=== PATIENT | female | born 1975 | race Caucasian/White ===

== ENCOUNTER 2017-07-11 09:49 | Emergency (ER) | payer MEDICAID ==
[~2017-07-11] VITALS: Ht 157.5 cm; Wt 68.0 kg
[~2017-07-11 09:49] MED LIST: DICL75 PO; HYDR50TA94 PO; TRIA.025%T TOP; Z.0.NO CURRENT MEDS
[2017-07-11 09:52] VITALS: BP 205/128; PULSE 145; RESP 18; TEMP 98.7; O2SAT 100
[2017-07-11 09:56] VITALS: BP 158/101
[2017-07-11] MEDS ORDERED: SODIUM CHLOR 0.9% 1000 ML INJ 1,000 ML IV ONE ×2 (10:30→11:30)
[2017-07-11] MEDS ORDERED: PROCHLORPERAZINE INJ 10 MG/2 ML VIAL IV PUSH ONE (10:30)
[2017-07-11] MEDS ORDERED: diphenhydrAMINE HCL 50 MG/ML VIAL IV PUSH ONE (10:30)
--- NOTE | 2017-07-11 11:05 | RADRPT ---
EXAM DATE/TIME: 07/11/2017 10:27 [place] COMPARISON: No previous studies available for comparison. INDICATIONS : Shortness of breath. Chest pain. Cough. MEDICAL HISTORY : Hypertension. SURGICAL HISTORY : None. ENCOUNTER: Initial ACUITY: 4 - 6 days PAIN SCORE: 5/10 LOCATION: Bilateral chest FINDINGS: A single view of the chest demonstrates the lungs to be symmetrically aerated without evidence of mas s, infiltrate or effusion. The cardiomediastinal contours are unremarkable. Osseous structures are intact. CONCLUSION: Normal examination. Nubia Novak MD on July 11, 2017 at 10:56 Board Certified Radiologist. This report was verified electronically.
[2017-07-11 11:06] LABS: AUTOMATED NEUTROPHIL # 5.1 TH/MM3 (1.8-7.7); BASOPHIL # 0.1 TH/MM3 (0-0.2); BASOPHIL % 0.7 % (0.0-2.0); EOSINOPHIL # 0.1 TH/MM3 (0-0.4); HEMATOCRIT 39.3 % (35.0-46.0); HEMOGLOBIN 12.9 GM/DL (11.6-15.3); LYMPH % 30.1 % (9.0-44.0); LYMPHOCYTE # 2.5 TH/MM3 (1.0-4.8); MEAN CELL VOLUME 74.6 FL (80.0-100.0); MEAN CORPUSCULAR HEMOGLOBIN 24.5 PG (27.0-34.0); MEAN CORPUSCULAR HGB CONC 32.8 % (32.0-36.0); MEAN PLATELET VOLUME 7.8 FL (7.0-11.0); MONO % 6.9 % (0.0-8.0); MONOCYTE # 0.6 TH/MM3 (0-0.9); NEUT % 61.3 % (16.0-70.0); PLATELET COUNT 362 TH/MM3 (150-450); RED BLOOD COUNT 5.26 MIL/MM3 (4.00-5.30); RED CELL DISTRIBUTION WIDTH 17.7 % (11.6-17.2); WHITE BLOOD COUNT 8.3 TH/MM3 (4.0-11.0)
[2017-07-11 11:17] LABS: BACTERIA, URINE RARE /hpf; BILIRUBIN, URINE NEG (NEG); BLOOD, URINE NEG (NEG); GLUCOSE,URINE NEG (NEG); KETONE, URINE NEG (NEG); NITRITE,URINE NEG (NEG); SQUAMOUS EPITHELIAL CELL URINE 7 /hpf (0-5); URINE COLOR COLORLESS (YELLW/STRAW); URINE LEUKOCYTE ESTERASE NEG (NEG)
[2017-07-11 11:27] LABS: ALBUMIN 4.1 GM/DL (3.4-5.0); AST (GOT) 16 U/L (15-37); BICARBONATE 25.8 MEQ/L (21.0-32.0); BLOOD UREA NITROGEN 4 MG/DL (7-18); CALCIUM 9.2 MG/DL (8.5-10.1); CHLORIDE 102 MEQ/L (98-107); CREATININE 0.88 MG/DL (0.50-1.00); GLOMERULAR FILTRATION RATE 71 ML/MIN (>89); GLUCOSE,RANDOM 85 MG/DL (74-106); SODIUM (NA) 135 MEQ/L (136-145)
[2017-07-11 11:28] LABS: ALT (GPT) 26 U/L (10-53)
[2017-07-11 11:31] LABS: ALKALINE PHOSPHATASE 128 U/L (45-117); TOTAL BILIRUBIN ADULT 0.5 MG/DL (0.2-1.0); TOTAL PROTEIN 8.4 GM/DL (6.4-8.2)
[2017-07-11] MEDS ORDERED: NABU1TAB37 PO (11:41)
--- NOTE | 2017-07-11 11:42 | PD ---
HPI . Headache Chief Complaint: Pain: Acute or Chronic Time Seen by Provider: 10:08 Travel History International Travel<30 days: No Contact w/Intl Traveler<30days: No Traveled to known affect area: No History of Present Illness HPI Patient presents with chief complaint of headache. Onset was one and half weeks ago. It radiates to her neck and back. It is getting progressively worse. She currently rates it 10/10. She states that her pain tended to occur at the end of the day at the onset of her symptoms but that the pain is now continuous. She reports no relief with ibuprofen or Aleve. In addition, she is complaining with bilateral hip pain. She also has a poor appetite. She reports subjective fevers and chills. [facility] Past Medical History Anxiety: Yes Diminished Hearing: No Hypertension: Yes Psychiatric: Yes (PANIC ATTACK D/O) Tetanus Vaccination: Unknown ?: Not Social History Alcohol Use: Yes Tobacco Use: Yes Substance Use: Yes Allergies-Medications (Allergen,Severity, Reaction): Coded Allergies: penicillin G (Unverified Allergy, Severe, 07/11/17) Reported Meds & Prescriptions Reported Meds & Active Scripts Active No Active Prescriptions or Reported Medications Review of Systems Except as stated in HPI: all other systems reviewed are Neg General / Constitutional: Positive: Fever, Chills HENT: Positive: Headaches Musculoskeletal: Positive: Myalgias Physical Exam Narrative GENERAL: Patient is tearful. SKIN: warm/dry. Normal color and turgor. HEAD: Normocephalic. Atraumatic. Occipital scalp tenderness. EYES: Pupils equal and round. No scleral icterus. No injection or drainage. ENT: No nasal bleeding or discharge. Mucous membranes pink and moist. NECK: Trachea midline. Full range of motion without pain.. She does have paraspinous muscle tenderness. CARDIOVASCULAR: Sinus tachycardia. Heart sounds are normal. RESPIRATORY: No accessory muscle use. Clear to auscultation. Breath sounds equal bilaterally. GASTROINTESTINAL: Abdomen soft. Nontender. Bowel sounds present. Nondistended.c MUSCULOSKELETAL: No obvious deformities. Ambulatory. NEUROLOGICAL: Awake and alert. No obvious cranial nerve deficits. Motor grossly within normal limits. Normal speech. PSYCHIATRIC: Appropriate mood and affect; insight and judgment normal. Data Data Last Documented VS Vital Signs Date Time Temp Pulse Resp B/P (MAP) Pulse Ox O2 Delivery O2 Flow Rate FiO2 07/11/17 09:56 158/101 (120) 07/11/17 09:52 98.7 145 18 100 Orders Orders Sepsis Workup Initiated (07/11/17 ) Complete Blood Count With Diff (07/11/17 10:16) Comprehensive Metabolic Panel (07/11/17 10:16) Lactic Acid Sepsis Protocol (07/11/17 10:16) Urinalysis - C+S If Indicated (07/11/17 10:16) Influenzae A/B Antigen (07/11/17 10:16) Blood Culture (07/11/17 10:16) Chest, Single Ap (07/11/17 10:16) Iv Access Insert/Monitor (07/11/17 10:16) Diphenhydramine Inj (Benadryl Inj) (07/11/17 10:30) Prochlorperazine Inj (Compazine Inj) (07/11/17 10:30) Sodium Chlor 0.9% 1000 Ml Inj (Ns 1000 M (07/11/17 10:30) Urine Culture (07/11/17 10:45) Sodium Chlor 0.9% 1000 Ml Inj (Ns 1000 M (07/11/17 11:30) Labs Laboratory Tests Test 07/11/17 10:45 White Blood Count 8.3 TH/MM3 Red Blood Count 5.26 MIL/MM3 Hemoglobin 12.9 GM/DL Hematocrit 39.3 % Mean Corpuscular Volume 74.6 FL Mean Corpuscular Hemoglobin 24.5 PG Mean Corpuscular Hemoglobin Concent 32.8 % Red Cell Distribution Width 17.7 % Platelet Count 362 TH/MM3 Mean Platelet Volume 7.8 FL Neutrophils (%) (Auto) 61.3 % Lymphocytes (%) (Auto) 30.1 % Monocytes (%) (Auto) 6.9 % Eosinophils (%) (Auto) 1.0 % Basophils (%) (Auto) 0.7 % Neutrophils # (Auto) 5.1 TH/MM3 Lymphocytes # (Auto) 2.5 TH/MM3 Monocytes # (Auto) 0.6 TH/MM3 Eosinophils # (Auto) 0.1 TH/MM3 Basophils # (Auto) 0.1 TH/MM3 CBC Comment DIFF FINAL Differential Comment Urine Color COLORLESS Urine Turbidity CLEAR Urine pH 6.0 Urine Specific Jackson 1.001 Urine Protein NEG mg/dL Urine Glucose (UA) NEG mg/dL Urine Ketones NEG mg/dL Urine Occult Blood NEG Urine Nitrite NEG Urine Bilirubin NEG Urine Urobilinogen LESS THAN 2.0 MG/DL Urine Leukocyte Esterase NEG Urine RBC 1 /hpf Urine WBC 1 /hpf Urine Squamous Epithelial Cells 7 /hpf Urine Bacteria RARE /hpf Microscopic Urinalysis Comment CATH-CULTURE IND Blood Urea Nitrogen 4 MG/DL Creatinine 0.88 MG/DL Random Glucose 85 MG/DL Total Protein 8.4 GM/DL Albumin 4.1 GM/DL Calcium Level 9.2 MG/DL Alkaline Phosphatase 128 U/L Aspartate Amino Transf (AST/SGOT) 16 U/L Alanine Aminotransferase (ALT/SGPT) 26 U/L Total Bilirubin 0.5 MG/DL Sodium Level 135 MEQ/L Potassium Level 3.4 MEQ/L Chloride Level 102 MEQ/L Carbon Dioxide Level 25.8 MEQ/L Anion Gap 7 MEQ/L Estimat Glomerular Filtration Rate 71 ML/MIN Lactic Acid Level 1.8 mmol/L MDM Medical Decision Making Medical Screen Exam Complete: Yes Emergency Medical Condition: Yes Differential Diagnosis Differential diagnosis of headache includes but is not limited to migraine, muscle contraction headache, brain tumor, brain bleed Narrative Course This patient presents with a headache. Her exam is compatible with a muscle contraction headache. It also sounds like she has had a viral syndrome with diffuse myalgias and arthralgias. She reports subjective fevers and chills. The patient is tachycardic without fever. A septic workup has been done. It was negative. Last Impressions Chest X-Ray 07/11/17 1016 Signed Impressions: Service Date/Time: Tuesday, July 11, 2017 10:27 - CONCLUSION: Normal examination. Nubia Novak MD Chest x-ray was independently viewed by me. CBC & BMP Diagram 07/11/17 10:45 Total Protein 8.4 H, Albumin 4.1, Calcium Level 9.2, Alkaline Phosphatase 128 H , Aspartate Amino Transf (AST/SGOT) 16, Alanine Aminotransferase (ALT/SGPT) 26, Total Bilirubin 0.5 LA 1.8 UA negative. Heart rate has come down with IV fluids. Her headache was treated with IV Compazine and Benadryl with good relief. Diagnosis Primary Impression: Headache Qualified Codes: G44.209 - Tension-type headache, unspecified, not intractable Additional Impressions: Myalgia Arthralgia Qualified Codes: M25.551 - Pain in right hip; M25.552 - Pain in left hip Patient Instructions: Acute Headache (DC), Arthralgia (ED), General Instructions, Muscle Cramp (ED) Med/Other Pt SpecificInfo: Prescription(s) given Scripts Nabumetone (Nabumetone) 500 Mg Tab 500 MG PO BID for Pain-Inflammation, #60 TAB 0 Refills Prov: Naty Cordero MD 07/11/17 Disposition: 01 DISCHARGE HOME Condition: Stable Naty Cordero MD Jul 11, 2017 11:42
[2017-07-11 11:50] VITALS: PULSE 78
== END 2017-07-11 13:46 | disposition home or self-care (01) ==
LOC: NEPD 09:49
DX: G44.209 Tension-type headache, unspecified, not intractable (principal); M25.552 Pain in left hip; M25.551 Pain in right hip; M79.1 Myalgia; R82.71 Bacteriuria; Z72.0 Tobacco use
CPT/HCPCS: 71045; 80053; 81001; 83605; 85025; 87040; 87086; 96374; 96375; 99284; J0780; J1200; J7030